=== PATIENT | female | born 1935 | race Caucasian/White ===

== ENCOUNTER → 2016-09-18 | Outpatient (CLI) | payer MEDICARE, BC ==
[~2016-09-18] MED LIST: METAMUCIL3.4 GM/DOS PO; METOPROLOL TART25 MG PO; TOPROL XL 50MG50 MG PO
== END ==
LOC: MC.RAD 10:50
DX: Z12.31 Encounter for screening mammogram for malignant neoplasm of breast (principal)

== ENCOUNTER → 2017-10-29 | Outpatient (CLI) | payer MEDICARE, BC ==
[~2017-10-29] MED LIST changes: +ASPIRIN 81M81 MG/TA2 PO
== END ==
LOC: COL.VAS 08:24
DX: I65.23 Occlusion and stenosis of bilateral carotid arteries (principal)

== ENCOUNTER → 2017-11-07 | Outpatient (CLI) | payer MEDICARE, BC | LOC: MC.RAD 11-06 11:00 | DX: N64.52 Nipple discharge (principal) ==

== ENCOUNTER 2018-05-12 06:48 | Observation (INO) | payer MEDICARE, BC ==
[~2018-05-12] VITALS: Ht 172.7 cm; Wt 72.2 kg
[2018-05-12 07:15] LABS: BASO # 0.1 (0.0-0.2); BASO % 0.9 % (0.0-2.0); EOS # 0.1 (0.0-0.7); EOS % 1.4 % (0-4.0); GRAN # 5.6 (1.4-6.5); GRAN % 73.1 % (42.2-75.2); HEMATOCRIT 48.6 % (37.0-47.0); HEMOGLOBIN 15.8 g/dl (12.5-16.0); LYMPH # 1.4 (1.2-3.4); LYMPH % 18.8 % (20.0-51.0); MEAN CELL VOLUME 90 fl (80.0-100.0); MEAN CORPUSCULAR HEMOGLOBIN 29 pg (27.0-31.0); MEAN CORPUSCULAR HGB CONC 33 g/dl (33.0-37.0); MEAN PLATELET VOLUME 10.1 fl (7.4-10.4); MONO # 0.4 (0.1-0.6); MONO % 5.4 % (1.7-9.3); PLATELET COUNT 239 K/mm3 (130-400); RED BLOOD COUNT 5.38 M/mm3 (4.10-5.30); REDCELL DISTRIBUTION WIDTH-CV 13.3 % (11.5-14.5)
[2018-05-12 07:25] VITALS: BP 180/90; PULSE 69
[2018-05-12 07:31] LABS: ALANINE AMINOTRANSFERASE 27 U/L (9-52); ALKALINE PHOSPHATASE 103 U/L (50-136); ANION GAP 3 mmol/L (7-16); AST,SGOT 31 U/L (15-37); BILIRUBIN,TOTAL 0.6 mg/dL (0.0-1.0); BLOOD UREA NITROGEN 13 mg/dL (7-17); CALCIUM 9.8 mg/dL (8.4-10.2); CARBON DIOXIDE 29 mmol/L (22-30); CHLORIDE 109 mmol/L (98-107); CREATININE, serum 0.71 mg/dL (0.52-1.25); GLUCOSE 105 mg/dL (74-106); MAGNESIUM 2.1 mg/dL (1.6-2.3); PHOSPHOROUS 2.5 mg/dL (2.5-4.5); POTASSIUM 4.1 mmol/L (3.4-5.0); SODIUM 140 mmol/L (137-145)
[2018-05-12 07:43] LABS: TROPONIN-I < 0.012 ng/mL (0.000-0.034)
[2018-05-12 08:22] LABS: COLLECTION METHOD CLEAN CATCH
[2018-05-12 08:41] LABS: PH 7 (5-8); SQUAMOUS EPITHELIAL 0-2 /hpf; URINE APPEARANCE Clear; URINE BACTERIA None Seen /hpf; URINE BILIRUBIN Negative (NEGATIVE); URINE BLOOD Negative (NEGATIVE); URINE COLOR Straw; URINE GLUCOSE Negative (NEGATIVE); URINE KETONE Negative (NEGATIVE); URINE LEUKOCYTE ESTERASE Negative (NEGATIVE); URINE NITRATE Negative (NEGATIVE); URINE PROTEIN(semi-quant) Negative (NEGATIVE); URINE RBC 0-2 /hpf; URINE UROBILINOGEN Negative (NEGATIVE)
[2018-05-12 11:32] VITALS: BP 153/85; PULSE 66; TEMP 97.7
[2018-05-12 12:46] VITALS: BP 97/63
[2018-05-12 15:17] VITALS: BP 138/64; PULSE 97; TEMP 97.7
[2018-05-12 16:33] VITALS: BP 125/64; PULSE 70; TEMP 97.6
[2018-05-12 20:45] VITALS: BP 154/57; PULSE 74; TEMP 98.1
[2018-05-13 04:45] VITALS: BP 147/85; PULSE 65; TEMP 98
[2018-05-13 07:43] VITALS: BP 157/65; PULSE 66; TEMP 98
== END 2018-05-13 09:31 | disposition home or self-care (01) ==
LOC: COL.ER 06:48 → MEDICAL 10:40
PROVIDERS: Emergency Medicine
DX: I95.1 Orthostatic hypotension (principal); Z90.710 Acquired absence of both cervix and uterus; Z79.82 Long term (current) use of aspirin; Z88.5 Allergy status to narcotic agent
CPT/HCPCS: G0378; J7030; J7040

== ENCOUNTER → 2019-08-04 | Outpatient (CLI) | payer MEDICARE, BC | LOC: COL.CARD 07:28 | DX: I49.9 Cardiac arrhythmia, unspecified (principal) ==

== ENCOUNTER 2019-09-20 15:00 | Outpatient (RCR) | payer MEDICARE, BC | END 2019-12-19 | disposition still patient (30) | LOC: MKS.ESL.PT | DX: R42 Dizziness and giddiness (principal) ==

== ENCOUNTER → 2019-11-19 | Outpatient (CLI) | payer MEDICARE, BC | LOC: MC.RAD 09:30 | DX: Z12.31 Encounter for screening mammogram for malignant neoplasm of breast (principal); N64.89 Other specified disorders of breast ==

== ENCOUNTER → 2020-11-20 | Outpatient (CLI) | payer MEDICARE, BC | LOC: MC.RAD 10:45 | DX: Z12.31 Encounter for screening mammogram for malignant neoplasm of breast (principal) ==